=== PATIENT | male | born 1985 | race Asian ===

== ENCOUNTER 2021-01-11 20:14 | Emergency (ER) | payer BC, OTHER ==
[2021-01-11 21:01] LABS: BASOPHILS % (AUTO) 0.4 %; EOSINOPHILS # (AUTO) 0.1 10^3/uL (0.0-0.7); EOSINOPHILS % (AUTO) 0.6 %; HCT - HEMATOCRIT 45.2 % (42.0-52.0); HGB - HEMOGLOBIN 15.3 g/dL (14.0-18.0); LYMPHOCYTES # (AUTO) 1.9 10^3/uL (1.5-3.5); LYMPHOCYTES % (AUTO) 19.4 %; MEAN CORPUSCULAR HEMOGLOBIN 30.7 pg (27.0-31.0); MEAN CORPUSCULAR HGB CONC 33.8 g/dL (32.0-36.0); MEAN CORPUSCULAR VOLUME 90.6 fL (80.0-94.0); MEAN PLATELET VOLUME 10.3 fL (7.4-11.4); MONOCYTES # (AUTO) 0.7 10^3/uL (0.0-1.0); MONOCYTES % (AUTO) 6.8 %; NEUTROPHILS # (AUTO) 6.9 10^3/uL (1.5-6.6); NEUTROPHILS % (AUTO) 72.5 %; PLT - PLATELET COUNT 214 10^3/uL (130-450); RED BLOOD COUNT 4.99 10^6/uL (4.70-6.10); RED CELL DISTRIBUTION WIDTH 12.1 % (12.0-15.0); WHITE BLOOD COUNT 9.5 x10^3/uL (4.8-10.8)
[2021-01-11 21:14] LABS: ALBUMIN 5.1 g/dL (3.2-5.5); ALBUMIN/GLOBULIN RATIO 1.8 (1.0-2.2); BILIRUBIN,TOTAL 0.8 mg/dL (0.2-1.0); CREATININE 1.2 mg/dL (0.6-1.2); POTASSIUM 3.9 mmol/L (3.5-5.0); TOTAL PROTEIN 7.9 g/dL (6.7-8.2)
--- NOTE | 2021-01-11 21:21 | ED Physician Documentation ---
PD HPI ABD PAIN - Stated complaint Stated Complaint: ABD PX, BACK PX - Chief complaint Chief Complaint: Abd Pain - History obtained from History obtained from: Patient - History of Present Illness Timing - onset: How many minutes ago (90) Timing - details: Abrupt onset, Now resolved ("pretty much gone now", per patient), Waxing and waning Pain level max: 8 Pain level now: 0 Quality: Pain Location: RLQ Radiation: Right flank Improved by: Other (nothing) Worsened by: Palpation Associated symptoms: Nausea. No: Fever, Vomiting, Diarrhea Similar symptoms before: Has not had sx before Recently seen: Not recently seen - Additional information Additional information: c/o sudden onset RLQ pain radiating around right flank to right lower back, onset approximately 90 minutes [employer] while having BM. pain had been waxing and waning without apparent ameliorating factors, possibly some degree of exacerbation with palpation. Denies h/o similar symptoms. [place] well all day. By the time of this H+P, patient says the pain has resolved. Review of Systems Constitutional: denies: Fever GI: reports: Nausea. denies: Abdominal Pain, Vomiting, Diarrhea : denies: Dysuria, Frequency, Hematuria PD PAST MEDICAL HISTORY - Past Medical History Past Medical History: No - Past Surgical History Past Surgical History: No - Present Medications Home Medications: Ambulatory Orders Medication Instructions Recorded Confirmed No Known Home Medications 01/11/21 01/11/21 - Allergies Allergies/Adverse Reactions: Allergies Allergy/AdvReac Type Severity Reaction Status Date / Time No Known Drug Allergies Allergy Verified 01/11/21 20:49 - Social History Does the pt smoke?: No Smoking Status: Never smoker Does the pt drink ETOH?: Yes Does the pt have substance abuse?: No - Immunizations Immunizations are current?: Yes - POLST Patient has POLST: No PD ED PE NORMAL - Vitals Vital signs reviewed: Yes - General General: Alert and oriented X 3, No acute distress, Well developed/nourished - Abdomen Abdomen: Soft, Non tender, Non distended - Back Back: No CVA TTP - Derm Derm: No rash Results - Vitals Vitals: Vital Signs - 24 hr 01/11/21 01/11/21 01/11/21 20:35 20:38 21:57 Temperature 37.0 C 37.0 C 37.0 C Heart Rate 76 76 78 Respiratory 17 17 16 Rate Blood Pressure 121/72 121/72 123/72 O2 Saturation 98 98 99 Oxygen O2 Source Room air - Labs Labs: Laboratory Tests 01/11/21 01/11/21 01/11/21 20:53 20:53 21:13 WBC 9.5 RBC 4.99 Hgb 15.3 Hct 45.2 MCV 90.6 MCH 30.7 MCHC 33.8 RDW 12.1 Plt Count 214 MPV 10.3 Neut # (Auto) 6.9 H Lymph # (Auto) 1.9 [place] # (Auto) 0.7 Eos # (Auto) 0.1 Baso # (Auto) 0.0 Absolute Nucleated RBC 0.00 Nucleated RBC % 0.0 Sodium 141 Potassium 3.9 Chloride 101 Carbon Dioxide 29 Anion Gap 11.0 BUN 18 Creatinine 1.2 Estimated GFR (MDRD) 69 L Glucose 112 H Calcium 10.0 Total Bilirubin 0.8 AST 21 ALT 30 Alkaline Phosphatase 47 Total Protein 7.9 Albumin 5.1 Globulin 2.8 Albumin/Globulin Ratio 1.8 Lipase 30 Urine Color YELLOW Urine Clarity HAZY Urine pH 6.0 Ur Specific [place] 1.025 Urine Protein NEGATIVE Urine Glucose (UA) NEGATIVE Urine Ketones TRACE Urine Occult Blood LARGE H Urine Nitrite NEGATIVE Urine Bilirubin NEGATIVE Urine Urobilinogen 0.2 (NORMAL) Ur Leukocyte Esterase NEGATIVE Urine RBC 11-25 H Urine WBC 0-3 Ur Epithelial Cells None Seen Ur Squamous Epith Cells RARE Squamous Urine Bacteria None Seen Ur Microscopic Review INDICATED Urine Culture Comments NOT INDICATED PD MEDICAL DECISION MAKING - ED course Complexity details: reviewed results, re-evaluated patient, considered differential, d/w patient ED course: Patient has urine sample in sterile sample container at bedside. I note a 2mm diameter solitary piece of debris in the otherwise clear, yellow urine. Using the stick-end of a sterile swab, I applied pressure to the debris and it did not change morphology (ie, it is solid, has grit texture to it s/o calculus). Given this finding, and reported resolution of his symptoms, it is likely patient had renal colic which resolved with the passing of a kidney stone. His blood tests are unremarkable and he is comfortable with d/c home without further testing at this time. Departure - Departure Disposition: 01 Home, Self Care Clinical Impression: Renal colic Condition: Good Instructions: ED Stone Renal W Colic Follow-Up: Symone Silva MD [Primary Care Provider] - Discharge Date/Time: 01/11/21 21:58
[2021-01-11 21:25] LABS: BILIRUBIN,URINE NEGATIVE (NEGATIVE); GLUCOSE, URINE (UA) NEGATIVE (NEGATIVE); KETONES,URINE (UA) TRACE mg/dL (NEGATIVE); LEUKOCYTE ESTERASE, URINE NEGATIVE (NEGATIVE); NITRITE,URINE NEGATIVE (NEGATIVE); OCCULT BLOOD,URINE LARGE (NEGATIVE); PROTEIN,URINE NEGATIVE (NEGATIVE); UROBILINOGEN,URINE 0.2 (NORMAL) E.U./dL (NORMAL)
[2021-01-11 21:28] LABS: CLARITY,URINE HAZY (CLEAR)
[2021-01-11 21:41] LABS: SQUAMOUS EPITHELIAL CELL,UR RARE Squamous (<= Few); WBC,URINE 0-3 /HPF (0-3)
[2021-01-11 21:42] LABS: BACTERIA,URINE None Seen /HPF (None Seen); EPITHELIAL CELLS,UR None Seen /HPF (<= Few)
[2021-01-11 21:58] VITALS: BP 123/72
== END 2021-01-11 21:58 | disposition home or self-care (01) ==
LOC: ED 20:14
DX: N20.0 Calculus of kidney (principal)
CPT/HCPCS: 36415; 80053; 81001; 81003; 82365; 83690; 85025; 87086; 99281; 99283